=== PATIENT | female | born 1940 | race Caucasian/White ===

== ENCOUNTER 2018-08-14 22:35 | Emergency (ER) | payer OTHER ==
[~2018-08-14] VITALS: Ht 154.9 cm; Wt 101.8 kg
[2018-08-14] MEDS ORDERED: NITROGLYCERIN 2% 1 GM OINT PKT TD STA (22:40)
[2018-08-14] MEDS ORDERED: morphine 4 MG/ML VIAL IV STA (22:40)
[2018-08-14] MEDS ORDERED: ONDANSETRON 4 MG INJ IV STA (22:40)
[2018-08-14 22:42] VITALS: Ht 154.9 cm; Wt 101.8 kg
[2018-08-15 02:00] VITALS: BP 115/45; PULSE 65; RESP 18
--- NOTE | 2018-08-15 02:26 | ERD ---
ER Documentation Chief Complaint Chief Complaint [id number],chest pain,L arm numbness,rec'd aspirin 162 mg PO & nitro X3 HPI This is a 77-year-old female who presents to the emergency room complaining of chest pain. The patient is a history of morbid obesity, coronary disease with reported remote MS. The patient states that she has had chest pain that is pressure-like central with associated left arm numbness. Patient took aspirin and nitro via EMS with moderate improvement. She denies any fevers chills or cough, no pleuritic pain, no mid back pain. Symptoms are moderate currently. ROS All systems reviewed and are negative except as per history of present illness. Allergies Allergies: Coded Allergies: Penicillins (Verified Allergy, Unknown, hives, 08/14/18) Sulfa (Sulfonamide Antibiotics) (Verified Allergy, Unknown, hives, 08/14/18) PMhx/Soc History of Surgery: Yes (cholecystecomy, breast sx, laminectomy 05/18) Anesthesia Reaction: No Hx Neurological Disorder: No Hx Respiratory Disorders: No Hx Cardiac Disorders: Yes (HTN, CAD) Hx Psychiatric Problems: No Hx Miscellaneous Medical Probl: No Hx Alcohol Use: No Hx Substance Use: No Hx Tobacco Use: No Smoking Status: Never smoker FmHx Family History: No diabetes Physical Exam Vitals Vital Signs Date Temp Pulse Resp B/P (MAP) Pulse Ox O2 O2 Flow FiO2 Time Delivery Rate 08/14/18 97.7 81 18 134/61 95 22:42 (85) Physical Exam General: Well developed, well nourished, no acute distress Head: Normocephalic, atraumatic. Eyes: Pupils equally reactive, EOM intact ENT: Moist mucous membranes Neck: Supple, no lymphadenopathy Respiratory: Lungs clear bilaterally, no distress Cardiovascular: RRR, no murmurs, rubs, or gallops Abdominal: Soft, non-tender, non-distended, no peritoneal signs : Deferred MSK: No edema, no unilateral swelling, 5/5 strength Neurologic: Alert and oriented, moving all extremities, normal speech, no focal weakness, no cerebellar signs Skin: No rash Psych: Normal mood Result Diagram: 08/14/185 08/14/185 Results 24 hrs Laboratory Tests Test 08/14/18 22:45 White Blood Count 11.0 10^3/ul Red Blood Count 5.17 10^6/ul Hemoglobin 12.9 g/dl Hematocrit 42.2 % Mean Corpuscular Volume 81.6 fl Mean Corpuscular Hemoglobin 25.0 pg Mean Corpuscular Hemoglobin Concent 30.6 g/dl Red Cell Distribution Width 15.2 % Platelet Count 343 10^3/UL Mean Platelet Volume 11.4 fl Immature Granulocytes % 0.200 % Neutrophils % 63.5 % Lymphocytes % 25.0 % Monocytes % 6.0 % Eosinophils % 4.4 % Basophils % 0.9 % Nucleated Red Blood Cells % 0.0 /100WBC Immature Granulocytes # 0.020 10^3/ul Neutrophils # 7.0 10^3/ul Lymphocytes # 2.8 10^3/ul Monocytes # 0.7 10^3/ul Eosinophils # 0.5 10^3/ul Basophils # 0.1 10^3/ul Nucleated Red Blood Cells # 0.0 10^3/ul Sodium Level 138 mmol/L Potassium Level 4.1 mmol/L Chloride Level 101 mmol/L Carbon Dioxide Level 28 mmol/L Anion Gap 9 Blood Urea Nitrogen 16 mg/dl Creatinine 1.03 mg/dl Est Glomerular Filtrat Rate mL/min mL/min Glucose Level 233 mg/dl Calcium Level 9.7 mg/dl Troponin I < 0.012 ng/ml B-Type Natriuretic Peptide 107 PG/ML Current Medications Medications Dose Sig/Yesica Start Time Status Last (Trade) Ordered Route PRN Stop Time Admin Dose Reason Admin 1 inch ONCE STAT 08/14/18 DC 08/14/18 Nitroglycerin TD 22:40 22:56 08/14/18 22:42 (Nitroglyceri n 2% Oint) Morphine 4 mg ONCE STAT 08/14/18 DC 08/14/18 Sulfate IV 22:40 22:55 (morphine) 08/14/18 22:42 Ondansetron 4 mg ONCE STAT 08/14/18 DC 08/14/18 HCl (Zofran IV 22:40 22:55 Inj) 08/14/18 22:42 Procedures/MDM EKG, MONITORS, & DIAGNOSTIC IMAGING: EKG: I reviewed and interpreted a 12-lead EKG. Rhythm: Normal sinus rhythm ST Changes: No contiguous ST segment elevations T waves: No contiguous T wave inversions Impression: No evidence of acute cardiac ischemia Repeat EKG: EKG: I reviewed and interpreted a 12-lead EKG. Rhythm: Normal sinus rhythm ST Changes: No contiguous ST segment elevations T waves: No contiguous T wave inversions Impression: No evidence of acute cardiac ischemia Chest x-ray: I reviewed and interpreted a 1 view of the chest Mediastinum: No enlargement Cardiac silhouette: No cardiomegaly Airspace: Clear lung gibson bilaterally without evidence of pneumothorax Bones: No evidence of fracture PROCEDURES: None LAB INTERPRETATION: Negative troponin MEDICAL DECISION MAKING: The patient's history, physical exam and clinical presentation is concerning for possible cardiogenic etiology and acute coronary syndrome. Based on the patient's clinical exam and history and risk factors, I have a much lower clinical concern for pulmonary embolism, acute aortic dissection, pneumothorax, pneumonia, cardiac tamponade HEART Score: Greater than 4 MACE Rate: Upwards of 16.6% Shared Decision Making: We had a conversation regarding risk stratification, MACE rate, and the risks, benefits, alternatives of disposition planning options. Disposition planning: Admission ER COURSE: * Morphine provided. Aspirin given prior to arrival. Chest pain-free. * Negative troponin. * Patient is a [employer] member and stable for transportation CONSULTATION: None DISPOSITION PLAN: Accepting care team and consultations: I discussed the current laboratory data, diagnostic imaging and emergency care provided. Admitting team: [facility] has accepted the patient for admission Admitting team indication: Insurance directed Departure Diagnosis: Primary Impression: Chest pain Chest pain type: unspecified Qualified Codes: R07.9 - Chest pain, unspecified Additional Impression: Morbid obesity Condition: Stable OSIRIS POST MD Aug 15, 2018 02:26
== END 2018-08-15 02:42 | disposition short-term general hospital (02) ==
LOC: E/R 22:35
DX: R07.9 Chest pain, unspecified (principal); E66.01 Morbid (severe) obesity due to excess calories; I10 Essential (primary) hypertension; I25.10 Atherosclerotic heart disease of native coronary artery without angina pectoris
CPT/HCPCS: 36415; 71045; 80048; 83880; 84484; 85025; 93005; 96374; 96375; 99285; J2270; J2405